=== PATIENT | male | born 1955 | race Two or more races ===

== ENCOUNTER 2022-06-07 15:54 | Emergency (ER) | payer MEDICAID ==
[~2022-06-07] VITALS: Ht 172.7 cm; Wt 84.1 kg
[2022-06-07] MEDS ORDERED: OMEP20CA12 PO (16:21)
[2022-06-07] MEDS ORDERED: TIMO5DRO7 OU (16:21)
[2022-06-07] MEDS ORDERED: SIMV-46 PO (16:21)
[2022-06-07 18:07] LABS: BASOPHILS % (AUTO) 0.8 % (0.0-2.0); EOSINOPHILS % (AUTO) 3.8 % (1.0-6.0); HEMATOCRIT 44.1 % (41-53); HEMOGLOBIN 15.2 g/dL (13.5-17.5); LYMPHOCYTES # (AUTO) 1.8 K/uL (1.0-4.8); LYMPHOCYTES % (AUTO) 30.5 % (22.0-44.0); MEAN CORPUSCULAR HEMOGLOBIN 31.3 pg (26.0-34.0); MEAN CORPUSCULAR HGB CONC 34.5 G/dL (31.0-37.0); MEAN CORPUSCULAR VOLUME 91 fL (80-100); MONOCYTES # (AUTO) 0.5 K/uL (0.1-1.0); MONOCYTES % (AUTO) 7.9 % (2.0-9.0); NEUTROPHILS # (AUTO) 3.4 K/uL (1.8-7.7); PLATELET COUNT (AUTO) 198 K/uL (150-450); RED BLOOD CELL COUNT(AUTO) 4.86 MIL/uL (4.50-5.90); RED CELL DISTRIBUTION WIDTH 12.8 % (11.5-14.5)
[2022-06-07 18:19] LABS: ANION GAP 11 mmol/L (8-16); CALCIUM, TOTAL 8.7 mg/dL (8.8-10.5); CARBON DIOXIDE 22 mmol/L (22-29); CHLORIDE 105 mmol/L (98-107); CREATININE 1.14 mg/dL (0.60-1.30); GLOMERULAR FILTR. RATE CALC > 60 mL/min (>60); GLUCOSE,RANDOM 106 mg/dL (70-110); POTASSIUM 4.2 mmol/L (3.5-5.1); SODIUM SERUM 138 mmol/L (136-145); UREA NITROGEN, BLOOD 18 mg/dL (7-18)
[2022-06-07 18:25] LABS: ALANINE AMINOTRANSFERASE 19 U/L (12-78); ALBUMIN 3.6 g/dL (3.4-5.0); ALKALINE PHOSPHATASE 86 U/L (46-116); BILIRUBIN,TOTAL 0.4 mg/dL (0.1-1.0); TOTAL PROTEIN, SERUM 7.3 g/dL (6.4-8.2)
[2022-06-07 18:37] LABS: ASPARTATE AMINOTRANSFERASE 17 U/L (15-37)
[2022-06-07 18:44] LABS: B-TYPE NATRIURETIC PEPTIDE 11 pg/mL (0-100)
[2022-06-07 21:50] VITALS: BP 121/72
== END 2022-06-07 21:56 | disposition home or self-care (01) ==
LOC: EMS 16:03
DX: I95.9 Hypotension, unspecified (principal); E78.00 Pure hypercholesterolemia, unspecified; Z98.890 Other specified postprocedural states
CPT/HCPCS: 71046; 80053; 83880; 84484; 85025; 93005; 99285; 36415-L1; 36415-TC